=== PATIENT | male | born 1965 | race African-American/Black ===

== ENCOUNTER 2023-10-20 04:07 | Day surgery (SDC) | payer OTHER ==
[2023-10-15 09:29] VITALS: BMI 27.1
[2023-10-20 11:39] VITALS: RESP 20; TEMP 97.8
[2023-10-20] MEDS ORDERED: ONDANSETRON 4 MG/2 ML VIAL ONE (12:02)
[2023-10-20] MEDS ORDERED: MIDAZOLAM HCL 2 MG/2 ML SINGLE DOSE VIAL ONE (12:02)
[2023-10-20] MEDS ORDERED: FENTANYL CITRATE/PF 50 MCG/ML VIAL ONE ×2 (12:02→12:04)
[2023-10-20 14:31] VITALS: BP 112/68; PULSE 76
== END 2023-10-20 14:00 | disposition home or self-care (01) ==
LOC: JASU-SURG 04:07
PROVIDERS: ATTEND Urology
PROC: 0TF4XZZ Fragmentation in Left Kidney Pelvis, External Approach (ICD-10-PCS; principal; 2023-10-20 11:30)
DX: N20.0 Calculus of kidney (principal)

== ENCOUNTER 2024-05-17 04:24 | Day surgery (SDC) | payer OTHER ==
[2024-05-13 13:16] VITALS: BMI 27.1
[2024-05-17] MEDS ORDERED: MIDAZOLAM HCL 2 MG/2 ML SINGLE DOSE VIAL ONE (11:03)
[2024-05-17] MEDS ORDERED: ONDANSETRON 4 MG/2 ML VIAL ONE (11:03)
[2024-05-17 12:59] VITALS: RESP 18
[2024-05-17 13:00] VITALS: BP 109/72; PULSE 68; TEMP 98.4
== END 2024-05-17 12:42 | disposition home or self-care (01) ==
LOC: JASU-SURG 04:24
PROVIDERS: ATTEND Urology
PROC: 0TF4XZZ Fragmentation in Left Kidney Pelvis, External Approach (ICD-10-PCS; principal; 2024-05-17 11:30)
DX: N20.0 Calculus of kidney (principal)